=== PATIENT | male | born 1935 | race Caucasian/White ===

== ENCOUNTER 2017-02-26 15:52 | Inpatient (IN) | payer BC ==
[~2017-02-26] VITALS: Ht 185.4 cm; Wt 65.9 kg
--- NOTE | ~2017-02-26 | DS ---
Discharge Summary [facility] [address] [facility] [place]. [address] NAME: JONI SAMS JR : 33 STATUS : DIS IN PAT#: [id number] AGE: 81 ADM/REG DATE : 02/26/17 MR#: [id number] REPORT SERV DATE: 03/01/17 DICTATED BY: HERNANDEZ PATE DATE: 03/01/17 REPORT STATUS : Draft TRANSCRIBED BY: MODL DATE: 03/01/17 ADMISSION DATE: 02/26/2017 DISCHARGE DATE: 03/01/2017 DISCHARGE DIAGNOSES: 1. Spontaneous pneumothorax. 2. Diarrhea, currently stable. 3. Chronic kidney disease with a baseline creatinine around 1.6 to 1.8. 4. Chronic obstructive pulmonary disease. That is severe. 5. Lung cancer. CONSULTANTS DURING THIS HOSPITALIZATION: Dr. Lai Lewis of Pulmonology. INVASIVE PROCEDURES DONE DURING THIS HOSPITALIZATION: Placement of a pigtail catheter in the right chest by Interventional Radiology. BRIEF HISTORY OF PRESENT ILLNESS: The patient is an 81-year-old male, presented from Dr. Bey's office with findings of a pneumothorax on a CT scan that he had done routinely at [facility] earlier that morning, so he was admitted. For detailed history and physical exam, please see my note dictated on 02/26/2017. HOSPITAL COURSE: After being admitted to the hospital, this patient was immediately assessed and Radiology was called. Dr. Mason immediately placed a pigtail catheter in the right chest which was hooked up to suction via a chest tube canister. Within 24 hours, this patient's pneumothorax significantly improved and chest tube was placed to water seal. After another 24 hours, chest tube was removed and a repeat chest x-ray this morning shows only if any residual pneumothorax. This patient feels well and he says he is ready to go home and recover in the home setting. DISCHARGE DISPOSITION: Home. DISCHARGE ACTIVITY: As tolerated. DISCHARGE DIET: As tolerated. DISCHARGE MEDICATIONS: Doxycycline 100 mg once daily, Imodium 2 mg daily p.r.n. for diarrhea, prednisone 5 mg p.o. daily, Gilotrif 30 mg p.o. midnight, Ambien 10 mg p.o. once at bedtime. DISCHARGE FOLLOWUP: With Dr. Lai Lewis in one month for repeat chest x-ray. With Dr. Fabian Sweet as previously scheduled by him. About 25 minutes spent planning this patient's discharge, reconciling medications, discussing hospital care, and followup with the patient and documenting this discharge. Discharge Summary [place] [address] [place]. [address] NAME: JONI SAMS JR : 34 STATUS : DIS IN PAT#: [id number] AGE: 81 ADM/REG DATE : 02/26/17 MR#: [id number] REPORT SERV DATE: 03/01/17 DICTATED BY: HERNANDEZ PATE DATE: 03/01/17 REPORT STATUS : Draft TRANSCRIBED BY: DIEGO DATE: 03/01/17 SV/DIEGO Hernandez Pate M.D. / [id number] CC: Josey Salazar M.D. Carlos Baleeiro, M.D. Davey B. Daniel, M.D.
--- NOTE | ~2017-02-26 | HP ---
History And Physical [place] [address] [facility] [place]. [address] NAME: JONI SAMS JR : 34 STATUS : ADM IN PAT#: [id number] AGE: 81 ADM/REG DATE : 02/26/17 MR#: [id number] REPORT SERV DATE: 02/27/17 DICTATED BY: HERNANDEZ PATE DATE: 02/26/17 REPORT STATUS : Draft TRANSCRIBED BY: MODL DATE: 02/26/17 DATE OF ADMISSION: 02/26/2017 CHIEF COMPLAINT: "I feel fine." HISTORY OF PRESENT ILLNESS: The patient is an 81-year-old white male, apparently was sent to have a routine CT scan of the chest done post therapy of his non-small cell lung cancer by Dr. Fabian Sweet. This patient reportedly had the CT scan and was told that he had a moderate size right pneumothorax, so he was sent to see Dr. Bey. Dr. Bey called and asked for admission for further treatment and evaluation. This patient denies any chest pain. He is not having any shortness of breath. He denies any nausea, vomiting. He has not felt bad in any other way. REVIEW OF SYSTEMS: Fourteen-point review of systems otherwise negative. PAST MEDICAL HISTORY: Significant for non-small cell lung cancer. He denies any history of heart disease. He denies any history of hypertension, diabetes, or any other problems. PAST SURGICAL HISTORY: Significant for ear surgery in childhood. ALLERGIES: TO IV DYE. HOME MEDICATIONS: Unable to recall at this time. He is taking an oral agent for his lung cancer. SOCIAL HISTORY: He continues to smoke one pack per day for 60+ years. He continues to drink at least two drinks on a daily basis. He denies any illicit substances. FAMILY HISTORY: Reviewed with the patient, but noncontributory for this encounter. PHYSICAL EXAMINATION: GENERAL: White male, in no obvious respiratory distress. He is awake and alert. He is oriented. VITAL SIGNS: Vital signs stable. He is afebrile. HEENT: Head is normocephalic, atraumatic. Pupils are equal, round, and reactive to light. Extraocular muscles are intact. Sclerae anicteric. Conjunctivae normal. Oropharynx without lesion. Tongue protrusion midline. Uvula midline. NECK: Supple. No jugular venous distention. No carotid bruits or thyromegaly is appreciated. No lymphadenopathy in the neck is palpable. HEART: Regular rate and rhythm. No murmurs, rubs, or gallops are heard. LUNGS: Clear to auscultation. Diminished breath sounds in the right side are noted. No evidence of any focal consolidation. ABDOMEN: Scaphoid, soft, nontender, good bowel sounds. EXTREMITIES: Without cyanosis, clubbing, or edema. MUSCULOSKELETAL: Normal. History And Physical [address] [address] NAME: JONI SAMS JR : 34 STATUS : ADM IN PAT#: [id number] AGE: 81 ADM/REG DATE : 02/26/17 MR#: [id number] REPORT SERV DATE: 02/27/17 DICTATED BY: HERNANDEZ PATE DATE: 02/26/17 REPORT STATUS : Draft TRANSCRIBED BY: DIEGO DATE: 02/26/17 NEUROLOGIC: Seems to be grossly intact. LABORATORY DATA: No labs are available at this time. CT of the chest done at [facility] this morning shows new moderate size pneumothorax. The patient is asymptomatic at the time of imaging. Unchanged focus of right upper lobe scarring and consolidation. No new or suspicious parenchymal abnormalities. Subcentric hypoattenuation lesions at the periphery of the left hepatic lobe are unchanged. No new hepatic abnormalities. Irregular fusiform abdominal aortic ectasia measuring 3.4 cm at its widest point is unchanged, unchanged sclerotic osseous foci, presumably stable and/or treated metastatic lesions at L1- L5 and the right sacrum. No acute fractures or new osseous lesions are found. CT of the abdomen and pelvis, same as above. IMPRESSION: 1. Right-sided pneumothorax. 2. Non-small cell lung cancer with metastatic disease. PLAN: The patient will be admitted. Chest tube will be placed by Interventional Radiology. Pulmonology consultation will be obtained. Reasonable pain control will be done. Home medications will be addressed when available from pharmacy. The patient remains a full code at this time. J LUIS/DIEGO Hernandez Pate M.D. / [id number] CC: Josey Salazar M.D.
--- NOTE | ~2017-02-26 | CN ---
Consultation Report [facility] [address] [place]. [address] NAME: JONI DUONG JR : 34 STATUS : ADM IN PAT#: [id number] AGE: 81 ADM/REG DATE : 02/26/17 MR#: [id number] REPORT SERV DATE: 02/27/17 DICTATED BY: MANINDER LEWIS DATE: 02/27/17 REPORT STATUS : Draft TRANSCRIBED BY: MODL DATE: 02/27/17 DATE OF CONSULTATION: Thank you for the opportunity to consult on this patient. I have discussed the patient yesterday with Dr. Bey from Oncology and this morning with Dr. Salmon. The patient was seen and examined. HISTORY OF PRESENT ILLNESS: Mr. Duong is an 81-year-old man with a very long history of ongoing tobacco abuse and advanced stage lung cancer, who is now presenting with a spontaneous pneumothorax. He is fairly asymptomatic, had an elective followup CT scan to monitor his response to therapy and was found to have a moderate pneumothorax. He was not very symptomatic, but again because of the size of the pneumothorax, we agreed that this should be evacuated and had a pigtail catheter placed. He tolerated the procedure well with no complications and did not notice much difference in his symptoms before or after. PAST MEDICAL HISTORY: Significant for COPD and stage IV lung cancer, on tyrosine kinase inhibitor targeted therapy. SOCIAL HISTORY: Significant for a [id number] history of smoking. He has one to two drinks a day. No illicit drug use. ALLERGIES: HE HAS A HISTORY OF ALLERGY TO IV CONTRAST. FAMILY HISTORY: Noncontributory to this presentation. REVIEW OF SYSTEMS: Review of 10 systems was performed and is positive for what was noted above. PHYSICAL EXAMINATION: GENERAL: He is awake and alert. HEENT: Normocephalic and atraumatic. NECK: Supple. No lymphadenopathy. No JVD. CHEST: Symmetric with good expansion bilaterally. LUNGS: Clear to auscultation and percussion bilaterally. He has a pigtail in place and has no air leak that I could appreciate. CARDIAC: Benign with S1, S2, which are regular in rate and rhythm. ABDOMEN: Benign as well. EXTREMITIES: He has no edema, no clubbing, no cyanosis. ASSESSMENT AND PLAN: Spontaneous pneumothorax. He has significant chronic obstructive pulmonary disease with emphysema, which is obviously chronic, but he has quite a significant amount of centrilobular emphysema in the upper lobes, which may account for his pneumothorax source. We will start him on bronchodilators as well. He had good re-expansion thus far with only a minimal residual pneumothorax and has no air leak, so we will discontinue suction today and follow up with a chest x-ray tomorrow before consideration of Consultation Report [place] [address] [place] [address] NAME: JONI DUONG JR : 33 STATUS : ADM IN PAT#: [id number] AGE: 81 ADM/REG DATE : 02/26/17 MR#: [id number] REPORT SERV DATE: 02/27/17 DICTATED BY: MANINDER LEWIS DATE: 02/27/17 REPORT STATUS : Draft TRANSCRIBED BY: DIEGO DATE: 02/27/17 discontinuation of the chest tube. We appreciate the opportunity to participate in his care with you. Please do not hesitate to contact me if I could be of any further assistance. IFEOMA/DIEGO Maninder Lewis M.D. / [id number] CC: Josey Salazar M.D.
[~2017-02-26 15:52] MED LIST: AMB10 PO; AMB5 PO; ASAB PO; MIRALAXPKT PO; MULTIPLE VIT PO; PEPTO BISMOL LIQ1 ML PO; ZANTAC 150 PO
[2017-02-26] MEDS ORDERED: P5 PO (20:03)
[2017-02-26] MEDS ORDERED: DORYX100 MG PO (20:03)
[2017-02-26] MEDS ORDERED: GILOTRIF PO (20:03)
[2017-02-26] MEDS ORDERED: AMB10 PO (20:04)
[2017-02-26] MEDS ORDERED: IMOD PO (20:06)
[2017-02-26 20:56] LABS: BASOPHILS 0.3 %; BASOPHILS ABSOLUTE 0.03 10/3/uL (0.0-0.16); EOSINOPHILS 2.5 %; EOSINOPHILS ABSOLUTE 0.23 10/3/uL (0.0-0.53); HEMATOCRIT 39.5 % (40.0-51.0); HEMOGLOBIN 13.6 g/dL (13.6-17.8); IMMATURE GRANULOCYTES 0.3 %; IMMATURE GRANULOCYTES ABSOLUTE 0.03 10/3/uL (0.0-0.11); LYMPHOCYTES ABSOLUTE 1.38 10/3/uL (0.67-4.30); MANUAL DIFF NO %; MEAN CORPUS HGB CONC 34.4 g/dL (32.0-36.0); MEAN CORPUSCULAR HEMOGLOB 30.8 pg (26.0-34.0); MEAN CORPUSCULAR VOLUME 89.4 fL (80-100); MEAN PLATELET VOLUME 10.1 fL (9.2-13.0); MONOCYTES 7.6 %; NEUTROPHILS 74.3 %; NEUTROPHILS ABSOLUTE 6.81 10/3/uL (2.02-8.40); PLATELET COUNT 277 10/3/uL (150-400); RBC DISTRIBUTION WIDTH 14.8 % (12.0-16.0); RED CELL COUNT 4.42 10/6/uL (4.7-6.1); WHITE BLOOD CELLS 9.2 10/3/uL (4.5-10.5)
[2017-02-26 21:12] LABS: ALBUMIN 3.5 G/DL (3.5-5.0); ALKALINE PHOSPHATASE 75 U/L (45-117); BUN (BLOOD UREA NITROGEN) 34 MG/DL (6-23); CALCIUM, SERUM 8.8 MG/DL (8.5-10.4); CHLORIDE, SERUM 113 MMOL/L (96-112); CO2 (CARBON DIOXIDE) 20 MMOL/L (24-34); CREATININE 2.14 MG/DL (0.70-1.30); GFR AFRICAN AMERICAN 32 ML/MIN (>=60); GFR NON AFRICAN AMERICAN 28 ML/MIN (>=60); GLOBULIN 3.4 G/DL (2.5-4.1); GLUCOSE, SERUM 77 MG/DL (60-99); POTASSIUM, SERUM 4.2 MMOL/L (3.5-5.3); SGOT(AST) 23 U/L (5-40); SGPT(ALT) 24 U/L (5-65); TOTAL BILIRUBIN 0.3 MG/DL (0-1.2); TOTAL PROTEIN 6.9 G/DL (6.0-8.5)
[2017-02-26 21:15] LABS: SODIUM, SERUM 142 MMOL/L (135-148)
[2017-02-27 05:37] LABS: BUN (BLOOD UREA NITROGEN) 36 MG/DL (6-23); CALCIUM, SERUM 8.3 MG/DL (8.5-10.4); CHLORIDE, SERUM 114 MMOL/L (96-112); CO2 (CARBON DIOXIDE) 19 MMOL/L (24-34); CREATININE 2.11 MG/DL (0.70-1.30); GFR AFRICAN AMERICAN 33 ML/MIN (>=60); GFR NON AFRICAN AMERICAN 28 ML/MIN (>=60); GLUCOSE, SERUM 71 MG/DL (60-99); PHOSPHORUS, SERUM 3.2 MG/DL (2.5-4.5); POTASSIUM, SERUM 4.8 MMOL/L (3.5-5.3); SODIUM, SERUM 140 MMOL/L (135-148)
[2017-02-28 06:22] LABS: CALCIUM, SERUM 8.4 MG/DL (8.5-10.4); CHLORIDE, SERUM 116 MMOL/L (96-112); CO2 (CARBON DIOXIDE) 17 MMOL/L (24-34); CREATININE 1.81 MG/DL (0.70-1.30); GFR AFRICAN AMERICAN 39 ML/MIN (>=60); GFR NON AFRICAN AMERICAN 34 ML/MIN (>=60); GLUCOSE, SERUM 66 MG/DL (60-99); POTASSIUM, SERUM 4.1 MMOL/L (3.5-5.3); SODIUM, SERUM 143 MMOL/L (135-148)
[2017-02-28 06:23] LABS: BUN (BLOOD UREA NITROGEN) 32 MG/DL (6-23)
[2017-03-01 06:29] LABS: CREATININE 1.79 MG/DL (0.70-1.30)
== END 2017-03-01 11:32 | disposition home or self-care (01) | DRG 200 ==
LOC: ENRESERV → ENRESERVTM → ENRESERVDT → 5NO 16:12
PROVIDERS: Internal Medicine; Nurse Practitioner Family
DX: J93.11 Primary spontaneous pneumothorax (principal); C34.11 Malignant neoplasm of upper lobe, right bronchus or lung; C79.51 Secondary malignant neoplasm of bone; J44.9 Chronic obstructive pulmonary disease, unspecified; F17.210 Nicotine dependence, cigarettes, uncomplicated; N18.9 Chronic kidney disease, unspecified; R19.7 Diarrhea, unspecified
CPT/HCPCS: 32557; 71020; 80048; 80053; 82565; 83735; 84100; 85025; 94640; 99152; A9270-GY; C1769; J0360; J1170; J2405